=== PATIENT | female | born 1995 | race American Indian/Alaskan Native ===

== ENCOUNTER 2020-06-15 20:56 | Emergency (ER) | payer SELFPAY ==
[2020-06-15 21:02] VITALS: BP 144/87
[2020-06-15] MEDS ORDERED: IBUPROFEN 800 MG TAB PO ONE (22:11)
--- NOTE | 2020-06-15 22:25 | Emergency Department Report ---
ED General Adult HPI - General Chief complaint: Urogenital-Female Stated complaint: RT BREAST PAIN Time Seen by Provider: 06/15/20 22:11 Source: patient Mode of arrival: Ambulatory Limitations: No Limitations - History of Present Illness Initial comments: Patient 24-year-old -[place] female who presents for right chest wall abscess to right chest wall and right breast less than 1 cm x 2 days. There is no drainage or axillary tenderness patient denies fevers or chills. Patient denies fevers or chills. Patient denies exacerbating or relieving factors. Patient does have a history of same. - Related Data Previous Rx's Medication Instructions Recorded Last Taken Type cephALEXin [Keflex] 500 mg PO Q8HR 7 Days #21 cap 06/15/20 Unknown Rx Allergies Allergy/AdvReac Type Severity Reaction Status Date / Time No Known Allergies Allergy Verified 06/15/20 21:01 ED Review of Systems ROS: Stated complaint: RT BREAST PAIN Other details as noted in HPI Constitutional: denies: chills, fever Eyes: denies: eye pain, eye discharge, vision change ENT: denies: ear pain, throat pain Respiratory: denies: cough, shortness of breath, wheezing Cardiovascular: denies: chest pain, palpitations Endocrine: no symptoms reported Gastrointestinal: denies: abdominal pain, nausea, diarrhea Genitourinary: denies: urgency, dysuria, discharge Musculoskeletal: denies: back pain, joint swelling, arthralgia Skin: rash, lesions (right chest wall /breast ) Neurological: denies: headache, weakness, paresthesias Psychiatric: denies: anxiety, depression Hematological/Lymphatic: denies: easy bleeding, easy bruising ED Past Medical Hx - Past Medical History Previous Medical History?: No - Surgical History Past Surgical History?: Yes Additional Surgical History: x1 - Social History Smoking Status: Never Smoker Substance Use Type: None - Medications Home Medications: Home Medications Medication Instructions Recorded Confirmed Last Taken Type cephALEXin [Keflex] 500 mg PO Q8HR 7 Days #21 cap 06/15/20 Unknown Rx ED Physical Exam - General Limitations: No Limitations General appearance: alert, in no apparent distress - Head Head exam: Present: atraumatic, normocephalic - Eye Eye exam: Present: EOMI Pupils: Present: normal accommodation - ENT ENT exam: Present: mucous membranes moist - Neck Neck exam: Present: normal inspection - Respiratory Respiratory exam: Present: normal lung sounds bilaterally. Absent: respiratory distress - Cardiovascular Cardiovascular Exam: Present: regular rate, normal rhythm. Absent: systolic murmur, diastolic murmur, rubs, gallop - GI/Abdominal GI/Abdominal exam: Present: soft, normal bowel sounds. Absent: distended, t enderness - Rectal Rectal exam: Present: deferred - Extremities Exam Extremities exam: Present: normal inspection, full ROM. Absent: tenderness - Back Exam Back exam: Present: normal inspection, full ROM. Absent: tenderness - Neurological Exam Neurological exam: Present: alert, oriented X3, CN II-XII intact - Psychiatric Psychiatric exam: Present: normal affect, normal mood - Skin Skin exam: Present: warm, dry, intact, erythema (abscess less than 1 cm right chest wall base of breast no breast mass or tenderness no axillary tenderness no lymph no drainage or bleeding nonfucuant ) ED Course Vital Signs 06/15/20 21:01 Temperature 98.6 F Pulse Rate 89 Respiratory 16 Rate Blood Pressure 144/87 O2 Sat by Pulse 99 Oximetry ED Medical Decision Making - Medical Decision Making This is a small nonfluctuant abscess to chest wall at the base of breast. No nipple involvement no bleeding no lymph node drainage, plan warm compresses, antibiotics, follow-up with PCP in 2 to 3 days. Patient verbalized agreement and understanding with discharge plan. Patient DC'd home in stable condition at this time. Geological Technician RN was used for this case Critical care attestation.: If time is entered above; I have spent that time in minutes in the direct care of this critically ill patient, excluding procedure time. ED Disposition Clinical Impression: Abscess of chest wall Disposition: DC-01 TO HOME OR SELFCARE Is pt being admited?: No Does the pt Need Aspirin: No Condition: Stable Instructions: Skin Abscess Prescriptions: cephALEXin [Keflex] 500 mg PO Q8HR 7 Days #21 cap Referrals: PANCHITO IGNACIO MD [Staff Physician] - 3-5 Days Forms: Work/School Release Form(ED) Time of Disposition: 22:34
== END 2020-06-15 22:50 | disposition home or self-care (01) ==
LOC: ED 20:56
DX: L02.213 Cutaneous abscess of chest wall (principal); Z79.899 Other long term (current) drug therapy; Z98.890 Other specified postprocedural states
CPT/HCPCS: 99282

== ENCOUNTER 2020-09-10 10:18 | Emergency (ER) | payer SELFPAY ==
[2020-09-10 11:39] LABS: HCG Qualitative,Urine Negative (Negative)
[2020-09-10 11:42] LABS: Bacteria,Urine 1+ /HPF (Negative); Bilirubin,Urine NEG (Negative); Blood,Urine NEG (Negative); Color,Urine Straw (Yellow); Mucus,Urine FEW /HPF; Protein,Urine <15 mg/dL mg/dL (Negative); Urobilinogen,Urine < 2.0 mg/dL (<2.0)
--- NOTE | 2020-09-10 11:52 | Emergency Department Report ---
ED Abdominal Pain HPI - General Chief Complaint: Abdominal Pain Stated Complaint: STOMACH PAIN/BAD HEADACHE Time Seen by Provider: 09/10/20 11:03 Source: patient Mode of arrival: Ambulatory Limitations: No Limitations - History of Present Illness Initial Comments: 25-year-old female with no significant past history presents to the ER today with complaints of intermittent low abdominal pain. She states that the pain has been off and on for 2 weeks. She reports associated urinary frequency but no dysuria or hematuria or urinary odor and she also reports bilateral breast soreness and some mild nausea yesterday and a headache. Patient states that she had abnormal. This months. She states that her period came on September 05 and it was zoning administrator than normal and only lasted a day. She did take a home test but she took it before her August started because she also had an abnormal period in July. She has not seen her BOTTOM CEMENTER. She denies any vaginal discharge. She denies any fever or chills. She denies any diarrhea. She status post C- section x1 in the past but no other abdominal surgeries. MD Complaint: abdominal pain -: week(s) (2) - Related Data Previous Rx's Medication Instructions Recorded Last Taken Type cephALEXin [Keflex] 500 mg PO Q8HR 7 Days #21 cap 06/15/20 Unknown Rx Ibuprofen [Motrin] 800 mg PO Q8HR PRN #30 tablet 09/10/20 Unknown Rx Allergies Allergy/AdvReac Type Severity Reaction Status Date / Time No Known Allergies Allergy Verified 06/15/20 21:01 ED Review of Systems ROS: Stated complaint: STOMACH PAIN/BAD HEADACHE Other details as noted in HPI Comment: All other systems reviewed and negative Constitutional: denies: chills, fever Eyes: denies: eye pain, eye discharge, vision change ENT: as per HPI. denies: ear pain, throat pain, dental pain, hearing loss, epistaxis, congestion Respiratory: denies: cough, shortness of breath, wheezing Cardiovascular: denies: chest pain, palpitations, dyspnea on exertion, orthopnea, edema, syncope, paroxysmal nocturnal dyspnea Gastrointestinal: abdominal pain, nausea. denies: vomiting, diarrhea, constipation, hematemesis, melena, hematochezia Genitourinary: frequency. denies: urgency, dysuria, hematuria, discharge, abnormal menses, dyspareunia Musculoskeletal: denies: back pain, joint swelling, arthralgia Skin: denies: rash, lesions, change in color, change in hair/nails, pruritus Neurological: headache. denies: weakness, numbness, paresthesias, confusion, abnormal gait, vertigo Psychiatric: denies: anxiety, depression, auditory hallucinations, visual hallucinations, homicidal thoughts, suicidal thoughts Hematological/Lymphatic: denies: easy bleeding, easy bruising ED Past Medical Hx - Past Medical History Previous Medical History?: No - Surgical History Additional Surgical History: x1 - Social History Smoking Status: Never Smoker Substance Use Type: None - Medications Home Medications: Home Medications Medication Instructions Recorded Confirmed Last Taken Type cephALEXin [Keflex] 500 mg PO Q8HR 7 Days #21 cap 06/15/20 Unknown Rx Ibuprofen [Motrin] 800 mg PO Q8HR PRN #30 tablet 09/10/20 Unknown Rx ED Physical Exam - General Limitations: No Limitations General appearance: alert, in no apparent distress - Head Head exam: Present: atraumatic, normocephalic, normal inspection - Eye Eye exam: Present: normal appearance, PERRL, EOMI Pupils: Present: normal accommodation - ENT ENT exam: Present: normal exam, mucous membranes moist - Neck Neck exam: Present: normal inspection, full ROM - Respiratory Respiratory exam: Present: normal lung sounds bilaterally. Absent: respiratory distress - Cardiovascular Cardiovascular Exam: Present: regular rate, normal rhythm, normal heart sounds - GI/Abdominal GI/Abdominal exam: Present: soft. Absent: distended, tenderness, guarding, rebound - Neurological Exam Neurological exam: Present: alert, oriented X3, CN II-XII intact, normal gait - Psychiatric Psychiatric exam: Present: normal affect, normal mood - Skin Skin exam: Present: intact ED Course Vital Signs 09/10/20 09/10/20 10:23 12:37 Temperature 98.6 F Pulse Rate 81 Respiratory 18 20 Rate Blood Pressure 128/80 O2 Sat by Pulse 96 Oximetry ED Medical Decision Making - Medical Decision Making The patient is resting comfortably and, is alert and in no distress. Her exam is unremarkable and benign; he has a soft nontender abdomen and in particular, there is no discomfort at McBurney's point and there is no pulsatile mass. Her history, exam, and current condition do not suggest acute appendicitis, bowel obstruction, acute cholecystitis, bowel perforation, major GI bleed, severe diverticulitis, abdominal aortic aneurysm, mesenteric ischemia, volvulus, PID, ovarian torsion or tubo-ovarian abscess, sepsis or other significant pathology to warrant further testing, continued ED treatment, admission or surgical evaluation at this point. The patient's vital signs have been stable. The patient does not have uncontrollable pain, intractable vomiting or other sign ificant symptoms. Her urinalysis negative for UTI and hCG is negative for . Discussed the results with patient. Recommend that she follow-up with her BOTTOM CEMENTER. She expressed understanding and agree with plan. The patient's condition is stable and appropriate for discharge from the emergency department. The patient will pursue further outpatient evaluation with the primary care physician or other designated or consulting physician as indicated in the discharge instructions. Critical care attestation.: If time is entered above; I have spent that time in minutes in the direct care of this critically ill patient, excluding procedure time. ED Disposition Clinical Impression: Lower abdominal pain, Abnormal menstrual cycle Disposition: TO HOME OR SELFCARE Is pt being admited?: No Does the pt Need Aspirin: No Condition: Stable Instructions: Abnormal Uterine Bleeding, Abdominal Pain, Adult, [id number], Abdominal Pain (ED) Additional Instructions: I recommend that you take Tylenol or ibuprofen as needed to help with any pain. It is important that you follow-up with the BOTTOM CEMENTER next week. Return to the ER if your symptoms worsens or changes in any way. Prescriptions: Ibuprofen [Motrin] 800 mg PO Q8HR PRN #30 tablet PRN Reason: pain Referrals: [facility] [Provider Group] - 3-5 Days [facility] [Provider Group] - 3-5 Days Time of Disposition: 12:28
[2020-09-10] MEDS ORDERED: ACETAMINOPHEN 500 MG TAB PO ONE (12:25)
[2020-09-10 13:22] VITALS: BP 132/76
== END 2020-09-10 13:18 | disposition home or self-care (01) ==
LOC: ED 10:18
DX: N92.1 Excessive and frequent menstruation with irregular cycle (principal); R10.30 Lower abdominal pain, unspecified; R35.0 Frequency of micturition; R39.15 Urgency of urination; R31.9 Hematuria, unspecified; Z98.890 Other specified postprocedural states
CPT/HCPCS: 81001; 81025; 99283

== ENCOUNTER 2020-09-20 11:15 | Emergency (ER) | payer OTHER ==
[2020-09-20 11:39] VITALS: BP 129/85
[2020-09-20] MEDS ORDERED: HYDROcodone/ACETAMINOPHEN 5-325 MG TAB PO ONE (12:00)
--- NOTE | 2020-09-20 12:00 | Emergency Department Report ---
ED Burn/Smoke HPI - General Chief complaint: Burn/Smoke Inhalation Stated complaint: BURN TO THE LEFT HAND Time Seen by Provider: 09/20/20 11:57 Source: patient Mode of arrival: Ambulatory Limitations: No Limitations - History of Present Illness Initial comments: 25 year old female presents to ED with c/o burn to left fingers of hand. Pt states that this occurred while at work today around 10 am. She states that she works at [employer] and one of the ways they thought out there frozen vegetables is by placing it in very hot water and today when she reached in to get the bag of vegetables the steam from the water caught her left hand. She states that she was wearing gloves but they would not heat resistant glove there which is basic labs. She reports burning pain to mainly her left second through fifth fingers. She states that she took 800 mg ibuprofen without any relief. She denies any obvious blistering. She is unsure of her last tetanus. MD Complaint: burn, other (hot water) -: Sudden (10pm) Type of Exposure: hot liquid Smoke Inhalation: none Location: other (fingers left hand ) - Related Data Previous Rx's Medication Instructions Recorded Last Taken Type cephALEXin [Keflex] 500 mg PO Q8HR 7 Days #21 cap 06/15/20 Unknown Rx HYDROcodone/APAP 5-325 [[place] 1 each PO Q4HR PRN #12 tablet 09/20/20 Unknown Rx 5/325] Ibuprofen [Motrin 800 MG tab] 800 mg PO Q8HR PRN #30 tablet 09/20/20 Unknown Rx Silver Sulfadiazine [Silvadene] 25 gm TP TID #1 tube 09/20/20 Unknown Rx Allergies Allergy/AdvReac Type Severity Reaction Status Date / Time No Known Allergies Allergy Verified 06/15/20 21:01 Burn HPI - History Stated Complaint: BURN TO THE LEFT HAND Chief Complaint: Burn/Smoke Inhalation Time Seen by Provider: 09/20/20 11:57 - Home Meds and Allergies Home Medications: Previous Rx's Medication Instructions Recorded Last Taken Type cephALEXin [Keflex] 500 mg PO Q8HR 7 Days #21 cap 06/15/20 Unknown Rx HYDROcodone/APAP 5-325 [[place] 1 each PO Q4HR PRN #12 tablet 09/20/20 Unknown Rx 5/325] Ibuprofen [Motrin 800 MG tab] 800 mg PO Q8HR PRN #30 tablet 09/20/20 Unknown Rx Silver Sulfadiazine [Silvadene] 25 gm TP TID #1 tube 09/20/20 Unknown Rx Allergies/Adverse Reactions: Allergies Allergy/AdvReac Type Severity Reaction Status Date / Time No Known Allergies Allergy Verified 06/15/20 21:01 ED Review of Systems ROS: Stated complaint: BURN TO THE LEFT HAND Other details as noted in HPI Comment: All other systems reviewed and negative Respiratory: denies: cough, shortness of breath, SOB with exertion, SOB at rest, wheezing Cardiovascular: denies: chest pain, palpitations Musculoskeletal: arthralgia Skin: other (burn fingers left hand ) ED Past Medical Hx - Past Medical History Previous Medical History?: No - Surgical History Past Surgical History?: Yes Additional Surgical History: x1 - Social History Smoking Status: Never Smoker Substance Use Type: None - Medications Home Medications: Home Medications Medication Instructions Recorded Confirmed Last Taken Type cephALEXin [Keflex] 500 mg PO Q8HR 7 Days #21 cap 06/15/20 Unknown Rx HYDROcodone/APAP 5-325 [[place] 1 each PO Q4HR PRN #12 tablet 09/20/20 Unknown Rx 5/325] Ibuprofen [Motrin 800 MG tab] 800 mg PO Q8HR PRN #30 tablet 09/20/20 Unknown Rx Silver Sulfadiazine [Silvadene] 25 gm TP TID #1 tube 09/20/20 Unknown Rx ED Physical Exam - General Limitations: No Limitations General appearance: alert, in distress (pt appears to be uncomfortable and in pain ) - Head Head exam: Present: atraumatic, normocephalic, normal inspection - Respiratory Respiratory exam: Absent: respiratory distress - Cardiovascular Cardiovascular Exam: Present: regular rate - Expanded Upper Extremity Exam Left Hand Wrist exam: Present: full ROM (She has full ROM of hands and fingers of left hand but it is painful when she flexes and extends fingers. ), tenderness (Diffuse ttp to 2nd -4th fingers of left hand. ), swelling (Mild diffuse soft swelling noted to 2nd -4th fingers), other (No apparent blistering noted to fingers of left hand. Cap refill nl, sensation intact. ). Absent: abrasion, laceration, ecchymosis, deformity, crepidus, dislocation, erythema, amputation, nail avulsion, subungual hematoma Neurosensory exam: Present: radial nerve intact, ulnar nerve intact, median nerve intact Vascular: Present: normal capillary refill. Absent: vascular compromise - Neurological Exam Neurological exam: Present: alert, oriented X3, CN II-XII intact, normal gait - Psychiatric Psychiatric exam: Present: normal affect, normal mood ED Course Vital Signs 09/20/20 11:37 Temperature 98.4 F Pulse Rate 80 Respiratory 15 Rate Blood Pressure 129/85 O2 Sat by Pulse 96 Oximetry ED Medical Decision Making - Medical Decision Making Patient with first-degree/second-degree catalan to her second through fourth fingers of left hand. No blister formation yet. She is neurovascularly intact. Flexion of her fingers are painful but she has full range of motion of her fingers of the left hand. Patient tetanus updated here in the ER today. Silvadene dressing applied. Burn care discussed with patient. Patient expressed understanding of instructions and agree with plan. Patient was stable at time of discharge. Critical care attestation.: If time is entered above; I have spent that time in minutes in the direct care of this critically ill patient, excluding procedure time. ED Disposition Clinical Impression: Burn of multiple fingers of left hand excluding thumb Disposition: DC-01 TO HOME OR SELFCARE Is pt being admited?: No Does the pt Need Aspirin: No Condition: Stable Instructions: Burn Care, Adult, [id number], Second-Degree Burn, Adult Additional Instructions: Keep the wound clean daily with soap and water. Dry well after cleaning. Apply the silvadene after cleaning. Do this 2-3 times per day. Take the norco and motrin as prescribed for pain. Follow up with PCP listed on d/c instructions in next 3-4 days for wound check. Return to ED if worse. Prescriptions: Ibuprofen [Motrin 800 MG tab] 800 mg PO Q8HR PRN #30 tablet PRN Reason: pain HYDROcodone/APAP 5-325 [[place] 5/325] 1 each PO Q4HR PRN #12 tablet PRN Reason: Pain Silver Sulfadiazine [Silvadene] 25 gm TP TID #1 tube Referrals: SHAUN EVANS MD [Staff Physician] - 3-5 Days Forms: Work/School Release Form(ED) Time of Disposition: 12:13
[2020-09-20] MEDS ORDERED: TETANUS,DIPH,PERTUSS(ACELL) VACCINE 0.5 ML SYRINGE IM ONE (12:01)
== END 2020-09-20 12:28 | disposition home or self-care (01) ==
LOC: ED 11:15
DX: T23.192A Burn of first degree of multiple sites of left wrist and hand, initial encounter (principal); Z98.890 Other specified postprocedural states; Z79.1 Long term (current) use of non-steroidal anti-inflammatories (NSAID); Z79.899 Other long term (current) drug therapy; X12.XXXA Contact with other hot fluids, initial encounter; Y93.89 Activity, other specified; Y92.89 Other specified places as the place of occurrence of the external cause; Y99.8 Other external cause status
CPT/HCPCS: 90471; 90715; 99282

== ENCOUNTER 2020-11-03 16:20 | Emergency (ER) | payer SELFPAY | END 2020-11-03 16:25 | disposition left against medical advice (07) | LOC: ED 16:20 | DX: R10.9 Unspecified abdominal pain (principal); Z53.21 Procedure and treatment not carried out due to patient leaving prior to being seen by health care provider ==

== ENCOUNTER 2020-11-04 10:06 | Emergency (ER) | payer SELFPAY ==
[2020-11-04 10:18] VITALS: BP 151/70
--- NOTE | 2020-11-04 11:00 | Emergency Department Report ---
ED Female HPI - General Chief complaint: Abdominal Pain Stated complaint: STOMACH PAIN Time Seen by Provider: 11/04/20 10:57 Source: patient Mode of arrival: Ambulatory Limitations: No Limitations - History of Present Illness Initial comments: 25-year-old female presents to the ER today with complaints of low abdominal pain. Patient states that she has been having intermittent low abdominal cramping for 1 week. Patient states that she also is . She states that she took 2 home test and they were both positive. She denies any a ssociated vaginal bleeding, vaginal discharge or UTI symptoms with the abdominal pain. She denies any bowel changes. She reports mild nausea but no vomiting. She states that she had a normal menstrual cycle September 05. She did bleed September for fourth but only for 1 day. She is G2, P1 Ab0. She denies any bleeding currently. MD Complaint: pelvic pain, other (Lower abdominal pain) -: week(s) (1) - Related Data Previous Rx's Medication Instructions Recorded Last Taken Type cephALEXin [Keflex] 500 mg PO Q8HR 7 Days #21 cap 06/15/20 Unknown Rx HYDROcodone/APAP 5-325 [[place] 1 each PO Q4HR PRN #12 tablet 09/20/20 Unknown Rx 5/325] Ibuprofen [Motrin 800 MG tab] 800 mg PO Q8HR PRN #30 tablet 09/20/20 Unknown Rx Silver Sulfadiazine [Silvadene] 25 gm TP TID #1 tube 09/20/20 Unknown Rx Allergies Allergy/AdvReac Type Severity Reaction Status Date / Time No Known Allergies Allergy Verified 11/04/20 10:15 ED Review of Systems ROS: Stated complaint: STOMACH PAIN Other details as noted in HPI Comment: All other systems reviewed and negative Constitutional: denies: chills, fever Eyes: denies: eye pain, eye discharge, vision change ENT: denies: ear pain, throat pain Respiratory: denies: cough, shortness of breath, wheezing Cardiovascular: denies: chest pain, palpitations Gastrointestinal: abdominal pain, nausea. denies: vomiting, diarrhea, constipation, hematemesis, melena, hematochezia Genitourinary: abnormal menses. denies: urgency, dysuria, frequency, hematuria, discharge, dyspareunia Musculoskeletal: denies: back pain, joint swelling, arthralgia Skin: denies: rash, lesions Neurological: denies: headache, weakness, paresthesias, confusion, abnormal gait, vertigo Psychiatric: denies: anxiety, depression, auditory hallucinations, visual hallucinations, homicidal thoughts, suicidal thoughts Hematological/Lymphatic: denies: easy bleeding, swollen glands ED Past Medical Hx - Past Medical History Previous Medical History?: No - Surgical History Additional Surgical History: x1 - Social History Smoking Status: Never Smoker Substance Use Type: None - Medications Home Medications: Home Medications Medication Instructions Recorded Confirmed Last Taken Type cephALEXin [Keflex] 500 mg PO Q8HR 7 Days #21 cap 06/15/20 Unknown Rx HYDROcodone/APAP 5-325 [[place] 1 each PO Q4HR PRN #12 tablet 09/20/20 Unknown Rx 5/325] Ibuprofen [Motrin 800 MG tab] 800 mg PO Q8HR PRN #30 tablet 09/20/20 Unknown Rx Silver Sulfadiazine [Silvadene] 25 gm TP TID #1 tube 09/20/20 Unknown Rx ED Physical Exam - General Limitations: No Limitations General appearance: alert, in no apparent distress - Head Head exam: Present: atraumatic, normocephalic, normal inspection - Eye Eye exam: Present: normal appearance, PERRL, EOMI Pupils: Present: normal accommodation - Respiratory Respiratory exam: Absent: respiratory distress - Cardiovascular Cardiovascular Exam: Present: regular rate - GI/Abdominal GI/Abdominal exam: Present: soft. Absent: distended, tenderness, guarding, rebound - Neurological Exam Neurological exam: Present: alert, oriented X3, CN II-XII intact, normal gait - Psychiatric Psychiatric exam: Present: normal affect, normal mood - Skin Skin exam: Present: intact ED Course Vital Signs 11/04/20 10:16 Temperature 98.3 F Pulse Rate 75 Respiratory 18 Rate Blood Pressure 151/70 O2 Sat by Pulse 100 Oximetry ED Medical Decision Making - Lab Data Result diagrams: 11/04/20 11:01 11/04/20 11:01 - Radiology Data Radiology results: report reviewed Patient: KHADAR CAM MR#: [id number] : 1995 Acct:[id number] Age/Sex: 25 / F ADM Date: 11/04/20 Loc: ED Attending Dr: Ordering Physician: WILL BOWERS Date of Service: 11/04/20 Procedure(s): US OB transvaginal Accession Number(s): [id number] cc: WILL BOWERS ULTRASOUND OBSTETRIC REASON FOR EXAM: abd pain//quant 2502 TECHNIQUE: Transabdominal and transvaginal ultrasound was performed to evaluate a first trimester . COMPARISON: None available. FINDINGS: FINDINGS: Single intrauterine gestational sac with yolk sac. No discrete pole identified at this time. Mean sac diameter measures 4.8 mm, corresponding to a gestational age of 5 weeks and 2 days. Perigestational hemorrhage: Small, measuring 4 mm. MATERNAL FINDINGS: 1.8 cm complex structure in the right ovary most likely reflects a corpus luteum cyst. Left ovary is unremarkable. No significant free fluid. IMPRESSION: Intrauterine of uncertain viability. IUP with yolk sac without discrete pole identified at this time. Findings may be related to early gestation. In a hemodynamically stable patient, recommend follow-up with pelvic ultrasound in 7-10 days. Small perigestational hemorrhage. Signer Name: Marcial Madrid MD Signed: 11/04/2020 1:23 PM Workstation Name: [id number] Transcribed By: CODY Dictated By: MARCIAL MADRID MD Electronically Authenticated By: MARCIAL MADRID MD Signed Date/Time: 11/04/20 1323 DD/ 1320 TD/TT: - Medical Decision Making 25-year-old female presents to the ER today with complaints of low abdominal pain. Patient states that she has been having intermittent low abdominal cramping for 1 week. Patient states that she also is . She states that she took 2 home test and they were both positive. She denies any associated vaginal bleeding, vaginal discharge or UTI symptoms with the abdominal pain. She denies any bowel changes. She reports mild nausea but no vomiting. She states that she had a normal menstrual cycle September 05. She did bleed September for fourth but only for 1 day. She is G2, P1 Ab0. She denies any bleeding currently. All labs reviewed -- CBC and CMP unremarkable. UA does not suggest UTI. Quant HCG measures at 2502. OB US shows Intrauterine of uncertain viability. IUP with yolk sac without discrete pole identified at this time. Findings may be related to early gestation. In a hemodynamically stable patient, recommend follow-up with pelvic ultrasound in 7-10 days. Small perigestational hemorrhage. Patient currently resting comfortably. She is not in any acute distress. She is not toxic or ill-appearing. She is neurologically intact with a normal gait. She denies any abdominal pain currently. She denies any vaginal bleeding. Discussed labs and ultrasound results with patient. Recommend close follow-up with her RADIOTELEPHONE OPERATOR next week. Patient does not currently have an RADIOTELEPHONE OPERATOR and so she will be given referral information on discharge instructions. Patient instructed to return if at any point she develops any worsening pain or bleeding. Patient expressed understanding of instructions and agree with plan. Patient stable at time of discharge. Critical care attestation.: If time is entered above; I have spent that time in minutes in the direct care of this critically ill patient, excluding procedure time. ED Disposition Clinical Impression: 5 weeks gestation of , Abdominal pain during Disposition: TO HOME OR SELFCARE Is pt being admited?: No Does the pt Need Aspirin: No Condition: Stable Instructions: Abdominal Pain During , Abdominal Pain (ED) Additional Instructions: I recommend that you take Tylenol as needed to help with pain. Recommend that you start taking a vitamin from [id number]. Follow-up with one of the RADIOTELEPHONE OPERATOR listed on your discharge instructions. Return to the ER immediately if your pain worsens or you start having any bleeding. Referrals: [facility] [Provider Group] - 3-5 Days [facility] [Provider Group] - 3-5 Days Time of Disposition: 13:49
[2020-11-04 11:30] LABS: Basophils # (Auto) 0.1 K/mm3 (0.0-0.1); Eosinophils # (Auto) 0.1 K/mm3 (0.0-0.4); Eosinophils % (Auto) 2.2 % (0.0-4.3); Hematocrit 39.2 % (30.3-42.9); Hemoglobin 13.6 gm/dl (10.1-14.3); Lymphocytes # (Auto) 1.9 K/mm3 (1.2-5.4); Lymphocytes % (Auto) 37.2 % (13.4-35.0); Mean Corpuscular HGB Conc 35 % (30-34); Mean Corpuscular Volume 85 fl (79-97); Monocytes # (Auto) 0.3 K/mm3 (0.0-0.8); Monocytes % (Auto) 6.7 % (0.0-7.3); Platelet Count 319 K/mm3 (140-440); Red Cell Distribution Width 12.9 % (13.2-15.2)
[2020-11-04 11:35] LABS: Bilirubin,Urine NEG (Negative); Blood,Urine NEG (Negative); Color,Urine Straw (Yellow); Mucus,Urine FEW /HPF; Protein,Urine <15 mg/dL mg/dL (Negative); RBC,Urine < 1.0 /HPF (0.0-6.0); Urobilinogen,Urine < 2.0 mg/dL (<2.0); WBC,Urine < 1.0 /HPF (0.0-6.0)
[2020-11-04 12:15] LABS: Alanine Aminotransferase 35 units/L (7-56); Albumin 4.5 g/dL (3.9-5); Blood Urea Nitrogen 9 mg/dL (7-17); Calcium 9.8 mg/dL (8.4-10.2); Hemolysis Index 4
[2020-11-04 12:17] LABS: BUN/Creatinine Ratio 18
--- NOTE | 2020-11-04 13:28 | Ultrasound Report ---
ULTRASOUND OBSTETRIC REASON FOR EXAM: abd pain//quant 2502 TECHNIQUE: Transabdominal and transvaginal ultrasound was performed to evaluate a first trimester pre gnancy. COMPARISON: None available. FINDINGS: FINDINGS: Single intrauterine gestational sac with yolk sac. No discrete pole identified at this time. Me an sac diameter measures 4.8 mm, corresponding to a gestational age of 5 weeks and 2 days. Perigestational hemorrhage: Small, measuring 4 mm. MATERNAL FINDINGS: 1.8 cm complex structure in the right ovary most likely reflects a corpus luteum cyst. Left ovary is unremarkable. No significant free fluid. IMPRESSION: Intrauterine of uncertain viability. IUP with yolk sac without discrete pole identifi ed at this time. Findings may be related to early gestation. In a hemodynamically stable patient, rec ommend follow-up with pelvic ultrasound in 7-10 days. Small perigestational hemorrhage. Signer Name: Harshad Madrid MD Signed: 11/04/2020 1:23 PM Workstation Name: [id number]
== END 2020-11-04 14:29 | disposition home or self-care (01) ==
LOC: ED 10:06
DX: O26.891 Other specified pregnancy related conditions, first trimester (principal); R10.30 Lower abdominal pain, unspecified; Z79.899 Other long term (current) drug therapy; Z98.890 Other specified postprocedural states; Z3A.01 Less than 8 weeks gestation of pregnancy
CPT/HCPCS: 36415; 76817; 80053; 81001; 84702; 85025